=== PATIENT | male | born 1995 | race Caucasian/White ===

== ENCOUNTER 2018-03-02 19:08 | Emergency (ER) | payer OTHER ==
[2018-03-02] MEDS ORDERED: ACETAMINOPHEN 500 MG TAB PO ONE (19:27)
[2018-03-02] MEDS ORDERED: NS 1,000 ML IV ONE ×2 (19:27→20:18)
[2018-03-02] MEDS ORDERED: ALBUTEROL 3 ML DEYVIAL IH ONE (19:40)
[2018-03-02] MEDS ORDERED: DEXAMETHASONE 4 MG TAB PO ONE (20:09)
[2018-03-02] MEDS ORDERED: OSELTAMIVIR PHOSPHATE 75 MG CAP PO ONE (20:31)
--- NOTE | 2018-03-02 20:49 | EDPHY ---
General Time Seen by Provider: 03/02/18 19:30 Narrative: CLINICAL IMPRESSION: Influenza a ASSESSMENT/PLAN: Patient is a 22-year-old male with no significant medical history who presents with complaints of myalgias, sore throat, runny nose, congestion and cough. Patient is febrile on arrival, tired appearing however not toxic-appearing. He was found to be mildly tachycardic on arrival however I do not suspect sepsis. Laboratory studies were obtained including negative rapid strep, positive influenza a. CXR negative for consolidation or infiltrate. History and physical examination is most consistent with influenza a. There is no evidence of significant sinusitis, bacterial pharyngitis, Johann's angina, epiglottitis, meningitis, pneumonia or serious bacterial illness. The patient was given albuterol inhaler, Decadron, Tamiflu and 2 L of IV fluids with improvement of his symptoms. The patient will continue Tamiflu and albuterol as needed. On re-examination and prior to discharge this patient is stable and well -appearing, he reports that he is feeling markedly better. His heart rate normalized, his oxygen saturation was 94% on room air without evidence of hypoxia. The patient is well established with PCP although we do not have one listed, we discussed the importance of close follow-up. Strict return precautions discussed-he will return for significantly worsening symptoms, high fevers, neck stiffness, difficulty swallowing, chest pain, shortness of breath, signs of dehydration or for any other concerning symptom. The patient verbalizes understanding and he is in agreement with this plan DIFFERENTIAL DX: Adult fever including but not limited to viral syndromes including influenza, urinary tract infection, pneumonia and sepsis. ED COURSE: 2004: Case discussed with Dr. River CHIEF COMPLAINT: Cough, congestion, runny nose, sore throat and fever HPI: Patient is a 22-year-old male who presents to the emergency department complaining of fever, runny nose, congestion, sore throat, cough and myalgias. Patient reports on Tuesday he felt a little tickle in his throat, yesterday he started to develop significantly worsening symptoms to include sore throat, myalgias, runny nose, congestion and cough. He feels that his cough is very dry and nonproductive. Patient denies any headache or dizziness. He denies any neck stiffness, difficulty swallowing, lumps in neck, nausea or vomiting. His appetite has been poor. Patient has been taking ibuprofen and Mucinex and feels that it is helped minimally. Patient denies any sick contacts, there has been no recent travel. He did not get a flu shot this year. PMH: Denies Pertinent Past Surgical History: Denies Family History: Noncontributory Social History: Denies REVIEW OF SYSTEMS: All other systems negative Constitutional: Fever, chills, appetite change. Eyes: No discharge, vision change ENT: Sore throat, runny nose, congestion. Denies ear pain. Cardiovascular: No chest pain, no palpitations. Respiratory: Cough. Gastrointestinal: No abdominal pain, no vomiting, diarrhea. Genitourinary: No hematuria, dysuria, flank pain, pelvic pain Musculoskeletal: No back pain, joint swelling, joint pain, myalgias. Skin: No rashes, color change. Neurological: No headache, dizziness, weakness. PHYSICAL EXAM: General Appearance: Well-developed, tired appearing however not toxic- appearing. HENT: Normocephalic, atraumatic. Bilateral external ears are normal. Bilateral tympanic membranes are normal with pearly mcmullen reflex. Nares are clear, mucosa is pink. Oropharynx is clear, uvula is midline. No oral exudates, no tonsillar enlargement. The dentition is normal. Phonation is normal without hot potato voice. There is no stridor, there is no trismus. Eyes: PERRLA, no acute vision change, nystagmus, swelling, discharge, pain or photosensitivity. Conjunctiva pink, no pallor or injection Neck: Supple, nontender, no lymphadenopathy, no midline pain, FROM, no meningismus. Respiratory: There are no retractions, lungs are clear to auscultation. Cardiac: Tachycardic, no murmurs or gallops. Gastrointestinal: Abdomen is soft, nontender, bowel sounds normal, no masses/ hernia, no rigidity, guarding or focal peritoneal findings. Neurological: Alert and oriented x 3, CN 2-12 grossly intact, normal gait no ataxia, DTR's intact, normal sensation and strength Skin: Warm, dry, no rashes, no nodules on palpation. Musculoskeletal: Extremities are symmetrical, full range of motion, no tenderness, deformity, swelling, or erythema. Psychiatric: Patient is oriented X 3, there is no agitation. MEDICAL DECISION MAKING: Patient was seen independently. Secondary supervising physician at time of evaluation was Dr. River, he did not evaluate this patient however this case was discussed with him.. Diagnosis: Influenza a. New, requires workup Summary: See Assessment and Plan for summary of ED visit Clinical lab tests: ordered / reviewed. Independent visualization of images, tracing, or specimens: Yes. Decision to obtain medical records or history from someone other than the patient: Yes, mother Review / Summarize previous medical records: Yes Discussed patient with another provider: Yes, Dr. River Patient Progress: Stable, discharged. - Diagnostics Imaging Results: Imaging Impressions Chest X-Ray 03/02/18 19:34 Impression: Clear lungs. No pneumonia. - History Smoking Status: Never smoked - Objective Vital Signs: Initial Vital Signs Temperature (C) 39.4 C H 03/02/18 19:12 Heart Rate 115 H 03/02/18 19:12 Respiratory Rate 20 03/02/18 19:12 Blood Pressure 106/67 03/02/18 19:12 O2 Sat (%) 92 03/02/18 19:12 O2 Delivery Mode Room Air Allergies/Adverse Reactions: No Known Allergies Allergy (Unverified 03/02/18 19:16) Home Medications: Medication Instructions Recorded Albuterol [Proventil Inhaler HFA 1 - 2 puffs IH Q4H PRN #1 mdi 03/02/18 (*)] Ibuprofen 400 mg PO 03/02/18 Oseltamivir Phosphate [Tamiflu 75 75 mg PO BID 5 Days cap 03/02/18 mg (*)] guaiFENesin [Mucinex] 600 mg PO 03/02/18 Laboratory Results: 03/02/18 03/02/18 Unknown 19:30 Nasal Influenza A PCR FLU A DETECTED H (NEGATIVE) Nasal Influenza B PCR NEGATIVE FOR FLU B (NEGATIVE) Group A Strep Screen NEGATIVE (NEGATIVE) Group A Strep DNA Pending Medications Given: Discontinued Medications Acetaminophen (Tylenol) 1,000 mg PO EDNOW ONE Stop: 03/02/18 19:28 Last Admin: 03/02/18 19:38 Dose: 1,000 mg Albuterol (Proventil Neb) 3 ml IH EDNOW ONE Stop: 03/02/18 19:41 Last Admin: 03/02/18 19:43 Dose: 3 ml Dexamethasone (Decadron) 10 mg PO EDNOW ONE Stop: 03/02/18 20:10 Last Admin: 03/02/18 20:19 Dose: 10 mg Sodium Chloride (Ns) 1,000 mls @ 0 mls/hr IV ONCE ONE PRN Reason: Wide Open Stop: 03/02/18 19:28 Last Admin: 03/02/18 19:38 Dose: 1,000 mls Sodium Chloride (Ns) 1,000 mls @ 0 mls/hr IV ONCE ONE PRN Reason: Wide Open Stop: 03/02/18 20:19 Last Admin: 03/02/18 20:24 Dose: 1,000 mls Oseltamivir Phosphate (Tamiflu) 75 mg PO EDNOW ONE Stop: 03/02/18 20:32 Last Admin: 03/02/18 20:37 Dose: 75 mg Departure - Departure Disposition: Home, Routine, Self-Care Clinical Impression: Influenza A Condition: Good Instructions: Influenza (ED) Additional Instructions: DISCHARGE INSTRUCTIONS FROM YOUR DOCTOR Thank you for visiting our emergency department today. Please keep in mind that discharge from the emergency department does not mean that there is nothing wrong - it simply means that we have not identified an emergency condition that requires further evaluation or treatment in the hospital. Plenty of fluids and rest. [id number] expectorants, decongestants, cough suppressants as directed on bottle. Tylenol or Motrin as needed for pain or fever. Tamiflu twice daily x 5 days. Follow up with PCP in 5 days if no better, return to ER for worsening of symptoms or for new symptoms or concerns. Rest, push non-diuretic, non-caffeinated fluids, consume a healthy diet, all to help support your immune system fight infection. Consider running a coolmist humidifier in the bedroom. Consider warm salt water gargles for sore throat. Consider over the counter saline nasal washes ie: Neilmed sinus rinse, [place] or [place]. Consider over the counter Mucinex for congestion and/or cough as directed. Ibuprofen 400 mg for fever and/or pain. Take with food. Stop if it upsets your stomach. Do not exceed 2400 mg in 24 hours. Tylenol 500 mg to a 1000 mg as needed for fever and/or pain. Do not exceed 4000 mg in 24 hours. As discussed, in the setting of a viral illness, you may develop a secondary bacterial infection, requiring an antibiotic. Watch for new or changing symptoms ie: new ear pain or drainage, increasing cough, shortness of breath, high fever, or any other concerning symptoms. Schedule a follow-up appointment with your primary care physician in the next 2- 3 days for re-evaluation, sooner for any new concerns. Return for high fever, shaking chills, severe headache, facial redness or swelling, drainage from your ears, difficulty breathing or swallowing, throat tightness, drooling, change in voice, inability to open your mouth normally, severe neck pain, neck stiffness, shortness of breath, wheezing, noisy breathing , coughing up blood, chest pain, vomiting, diarrhea, bloody stools, decreased urine output or other concerns for dehydration, bloody urine, rash, dizziness, weakness, fainting, or for any other new, worsening or worrisome symptoms. People present with illnesses and injuries in different ways, and it is always possible that we have missed something. You may always return for re-evaluation if symptoms worsen or if they are not improving or if you develop new/different symptoms. Again, thank you for choosing our emergency department. We hope that you feel better. Referrals: NONE *PRIMARY CARE P,. [Primary Care Provider] - 2-3 days, call for appt. ( Please call your primary care provider to schedule a follow-up appointment.) Prescriptions: Albuterol [Proventil Inhaler HFA (*)] 1 - 2 puffs IH Q4H PRN #1 mdi PRN Reason: Cough, Severe Oseltamivir Phosphate [Tamiflu 75 mg (*)] 75 mg PO BID 5 Days cap
[2018-03-02 21:19] VITALS: BP 113/46
== END 2018-03-02 21:35 | disposition home or self-care (01) ==
DX: J11.1 Influenza due to unidentified influenza virus with other respiratory manifestations (principal)
CPT/HCPCS: J7613